=== PATIENT | female | born 1965 | race Caucasian/White ===

== ENCOUNTER 2021-08-08 08:28 | Outpatient (CLI) | payer BC, SELFPAY | END 2021-08-08 08:29 | disposition home or self-care (01) | LOC: ANHSURGERY 08:38 | PROVIDERS: PCP Internal Medicine; Visit Provider Obstetrics & Gynecology Gynecology | DX: Z01.818 Encounter for other preprocedural examination (principal) | CPT/HCPCS: 36415; 86850; 86900; 86901 ==

== ENCOUNTER 2021-08-15 16:53 | Inpatient (IN) | payer BC, SELFPAY ==
[2021-08-07 12:26] VITALS: BMI 26.5
--- NOTE | 2021-08-07 12:40 | PC.NURSE ---
Report to the Outpatient Waiting Room, entrance under the green pavilion located off [facility], at time 6:00 on date 08/14/21. OR Time: 7:30. - You and your visitor will be asked a series of questions to screen for COVID 19 for your protection. - A mask is required within the hospital. - Only one visitor is allowed at this time. Patient visitors will be guided where to wait when not with patient. Preoperative COVID Testing Requirements: No COVID Test needed if: (proof is required; if not received patient will have Rapid Test prior to entry) - Patient has received COVID Vaccine at least 14 days prior to procedure date or - Patient has positive COVID test result within last 90 days of surgery date. COVID Test needed if above criteria is not met If not COVID vaccinated a COVID test must be conducted within 72 hours of surgery and patient is asked to isolate self from time of testing until procedure. You will go to the [facility] for your COVID testing. The [facility] is located at the corner of [address] [facility]. You will only be called if COVID results are positive and your surgeon may reschedule your elective surgery date. Patients may have clear liquids (water, carbonated beverages, clear teas, apple juice) until 3 hours prior to surgery with a maximum of 20 ounces. - No food from midnight until time of surgery - Infants may have breast milk until 4 hours before surgery, formula 6 hours prior to surgery. - Children will be allowed to drink immediately following surgery. If applicable, please bring a bottle or sippy cup to assist with drinking. Juice, water, soda, and popsicles are readily available. For infants on formula, please bring formula the day of surgery. Pacifiers are allowed. Take the following medications with a SIP of water the morning of surgery: N/A Medications to discontinue per physician VITAMINS/SUPPLEMENTS Date to take last dose 3 DAYS PRE-OP Please no make-up, nail mongolian, hairspray, perfume, deodorant, or body powder the day of surgery. No jewelry (including any body piercings) or valuables the day of surgery, leave them at home. Please take a shower or bath the night before, or the morning of, surgery with an antibacterial soap. Wear comfortable, loose fitting clothing. Children are encouraged to wear pajamas. - Jewelry must be removed prior to entering the operating room. Rings and piercings that are not removed may be cut off. - The hospital will not accept responsibility for valuables. - Please leave all valuables, including medications, at home the day of surgery. If you are going home after surgery, a licensed special education bus driver must drive you home. - NO public transportation without another adult. - We recommend that an adult stay with you for 24 hours following discharge. - We also recommend that you do not drive, make important decision, drink alcoholic beverages, or take any drugs that were not prescribed by your health care provider for at least 24 hours after your discharge time. For Pediatric surgeries, we recommend two adults accompany the child home (only one inside the building at this time). Follow any additional instructions given to you from your surgeon. Telephone instructions given to NICHOLAS SCOTT and asked if any additional questions and then verbalized understanding. Patient advised to call surgeon office or pre surgery nurse liaison [phone] if any additional questions.
[2021-08-14] VITALS (13 sets, daily range): BP systolic 90–139; BP diastolic 60–86; PULSE 66–86; RESP 14–18; TEMP 36.2–36.8; O2SAT 94–100
[2021-08-14] MEDS: ACETAMINOPHEN 500 MG TABLET 1000 MG PO (06:37)
--- NOTE | 2021-08-14 06:45 | P.PNAN_ITS ---
Anes - Initial Pre Proc Eval Procedure: Operation Date: 08/14/21 07:30 Proposed Procedures p Anterior and Posterior Vaginal Repair - Yana Vargas MD s Total Vaginal Hysterectomy With Possible Right Salpingo-Oophorectomy - Yana Vargas MD Date/Time: 08/14/21 06:45 Surgeon: Yana Vargas MD Pre Op Diagnosis: cystocele and rectocele Patient Data Age: 55 Gender: F Height: 1.6 m Weight: 68.04 kg Allergies Allergy/AdvReac Type Severity Reaction Status Date / Time No Known Allergies Allergy Unknown Unverified 08/14/21 06:25 Home Medications Medication Instructions Recorded Confirmed Type cholecalciferol (vitamin D3) 25 mcg PO DAILY 08/07/21 08/14/21 History [Vitamin D3] multivitamin 1 tablet PO DAILY 08/07/21 08/14/21 History omega-3 fatty acids [[place] 3] 1,500 mg PO DAILY 08/07/21 08/14/21 History Patient hx anesthesia problems: none Family hx anesthesia problems: none Results Review: All pre-operative results and documents have been reviewed as part of the pre-operative evaluation. [facility] Past Medical History Medical History (Updated 08/14/21 @ 06:46 by Bradley Pinto MD) Overweight (BMI 25.0-29.9) Family History Family History (Updated 05/04/16 @ 23:19 by DOCTOR UNKNOWN) Father Hypertension Family history of diabetes mellitus in first degree relative Family history of heart disease in male family member before age 55 Social History Social History Smoking status: Never smoker Second hand tobacco smoke exposure: No Alcohol intake: never Substance use: never Substance use type: does not use Living arrangements: with family Spiritual care concerns: No Anes - Eval Final PreProcedure Day of Procedure 08/14/21 06:45 Patient weight: overweight Heart: regular rate and rhythm Lungs: clear to auscultation and normal air movement Airway: Mallampati scale class II Neurological: alert and oriented Last oral intake: >/= 8 hours ASA classification: II Emergent: no Anesthetic plan: proceed Anesthesia type and monitoring: general ETT Results Review: All pre-operative results and documents have been reviewed as part of the pre-operative evaluation. Informed Consent: The patient's anesthetic plan and its attendant risks and benefits were discussed with the patient/family/POA. Questions were solicited and answers provided to the satisfaction of the patient/family/POA.
[2021-08-14] MEDS: LACTATED RINGERS 1,000 ML 30 ML IV CONT ×2 (06:47→09:24)
[2021-08-14] MEDS: KETOROLAC 15 MG/ML VIAL (*BKC) IV PUSH (06:55)
[2021-08-14] MEDS: SCOPOLAMINE 1.5 MG PATCH TRANSDERM (07:00)
--- NOTE | 2021-08-14 07:07 | WPDHPUPDATE1 ---
History and Physical Update Update Date/Time: 08/14/21 07:07 History and Physical has been reviewed, including an updated exam of the patient. There are NO changes in the patient's condition. Risks, benefits, and alternatives have been discussed and questions answered. Patient agrees to proceed with procedure.
--- NOTE | 2021-08-14 07:08 | PM.HPGS ---
History of Present Illness History of Present Illness Consent: Risks, benefits, and alternatives have been discussed and questions answered. Patient agrees to proceed with procedure. Chief complaint: cystocele and rectocele Narrative: Digna Wilson is a 55 year old female with symptomatic pelvic organ prolapse. Patient notes she has to splint in order to empty her bowels. She feels constant pressure. No history genuine stress incontinence now or in the past. Plan is to proceed with total vaginal hysterectomy, possible right salpingo-oophorectomy, anterior and posterior vaginal repair. The risks of infection, bleeding, injury to internal organs (bowel, bladder, ureters), deep vein thrombosis, and general anesthesia were reviewed. Possibility of not being able to reach to the right tube and ovary were also reviewed. The possibility needing to do a total abdominal hysterectomy was also discussed. Patient voiced understanding and agrees to proceed. All questions are answered Review of Systems Review of Systems: All systems reviewed & are unremarkable except as noted in HPI and below (History of present illness) Genitourinary: Genitourinary: Reports vaginal dryness PMFSH Past Medical History Medical History (Updated 08/14/21 @ 07:14 by Yana Vargas MD) (normal spontaneous vaginal delivery) x 4 (all approx. 9#) Osteoporosis Overweight (BMI 25.0-29.9) Surgical History Surgical History (Updated 08/14/21 @ 07:12 by Yana Vargas MD) S/P left oophorectomy And salpingectomy Family History Family History (Updated 05/04/16 @ 23:19 by DOCTOR UNKNOWN) Father Hypertension Family history of diabetes mellitus in first degree relative Family history of heart disease in male family member before age 55 Social History Social History Smoking status: Never smoker Second hand tobacco smoke exposure: No Alcohol intake: never Substance use: never Substance use type: does not use Living arrangements: with family Spiritual care concerns: No Meds Home Medications and Allergies Home Medications Medication Instructions Recorded Confirmed Type cholecalciferol (vitamin D3) 25 mcg PO DAILY 08/07/21 08/14/21 History [Vitamin D3] multivitamin 1 tablet PO DAILY 08/07/21 08/14/21 History omega-3 fatty acids [[place] 3] 1,500 mg PO DAILY 08/07/21 08/14/21 History Allergies Allergy/AdvReac Type Severity Reaction Status Date / Time No Known Allergies Allergy Unknown Unverified 08/14/21 06:25 Exam Const: General: healthy appearing and alert Orientation/consciousness: patient oriented x3 Resp: Effort & Inspection: normal respiratory effort Auscultation: clear to auscultation bilaterally Cardio: Rate: regular rate Rhythm: regular rhythm GI: GI Palp: Yes Soft to palpation, No Tenderness to palpation present (GI) and No Palpable mass present : External Female Exam: normal external appearance Speculum Exam - Vagina: normal vaginal discharge and other (Rectocele past the introitus at rest; third-degree cystocele) Speculum Exam - Cervix: normal appearance of the cervix Bimanual exam- vagina & uterus: uterine size normal, consistency normal and other (Decent 2+ to spines with Valsalva) Bimanual Exam- Adnexa, other: normal adnexae and No adnexal tenderness Neuro: General: patient oriented x3 Assessment and Plan Assessment and plan (1) Prolapse of female pelvic organs: Code(s): N81.9 - Female genital prolapse, unspecified Status: Acute Assessment and Plan: Plan to proceed with total vaginal hysterectomy, possible right salpingo-oophorectomy, anterior-posterior vaginal repair
[2021-08-14] MEDS: ceFAZolin 2 GM/D5W 50 ML 2 GM/50 ML BAG IVPB (07:29)
--- NOTE | 2021-08-14 09:25 | W.PM.PROC2 ---
Procedure Note - Detailed Date of Procedure 08/14/21 Pre-op Diagnosis cystocele and rectocele and uterine prolapse Post-op Diagnosis same (Plus Enterocele) Procedure Performed Total vaginal hysterectomy, anterior-posterior vaginal repair, enterocele repair Surgeon Yana Vargas MD Anesthesia general Findings Rectocele at introitus at rest. Third degree cystocele and uterine prolapse to +2 from spines at rest under anesthesia. Right tube and ovary not palpable or visible Description of Procedure The patient was taken to the operating room and placed under anesthesia in the dorsal lithotomy position. She was prepped and draped in the usual sterile fashion. Short weighted speculum was placed posteriorly and Jose David retractors placed anteriorly. The cervix is grasped on the anterior lip with a tenaculum and the cervix was injected with 1% lidocaine with epinephrine in a circumferential manner. The vaginal mucosa was incised in a circumferential manner around the cervix with a scalpel. The vaginal mucosa is dissected off anteriorly using sharp and blunt dissection. The peritoneum was entered using sharp dissection. The Jose David retractor was replaced. Posterior vaginal mucosa is dissected off using sharp and blunt dissection. The peritoneum was entered using sharp dissection. The long curved weighted speculum was placed intraperitoneally. The cardinal and uterosacral ligaments are serially clamped, transected, and suture ligated with 0 Vicryl. These were tagged for future use. The uterine vessels are clamped, transected, and suture ligated with 0 Vicryl. The utero-ovarian ligament is clamped, transected, and suture ligated with 0 Vicryl. The specimen was amputated and handed to the pantograph operator. The right tube and ovary are not visible or palpable therefore were left in situ. The short weighted speculum is replaced and the Jose David retractor is removed from the peritoneal cavity. The peritoneum was grasped anteriorly with a Peon and posteriorly with a Peon in the midline. The peritoneum was closed using 0 Ethibond in a pursestring suture incorporating the previously tagged cardinal and uterosacral ligaments as well as the tagged peritoneum anteriorly and posteriorly. The vaginal cuff was closed using 0 Vicryl in a running locked fashion. Good hemostasis was noted at all pedicles. The short weighted speculum is removed and the perineum was grasped at 5 and 7:00 a.m. on the previous hymenal ring with Allis clamps. The intervening tissue was incised with a scalpel and the a triangular portion of skin is excised on the perineum. The midline vaginal mucosa is injected with 1% lidocaine with epinephrine. The midline vaginal mucosa was dissected off the rectocele using Metzenbaum scissors. As the vaginal mucosa is incised is grasped with Allis clamps until apex was reached. And enterocele is noted as well. This was dissected at the same time was the rectocele without reentering the peritoneal cavity. The enterocele and rectocele are reduced using horizontal mattress sutures of 0 Ethibond in an interrupted fashion. Once the reduction is complete, the excess vaginal mucosa is excised using Metzenbaum scissors. The vaginal mucosa was closed using 0 Vicryl in a running locked fashion. The short weighted speculum is replaced and the Jose David retractor removed. The cystocele base is grasped at 5 and 7:00 a.m. with Allis clamps and the intervening tissue incised with a scalpel. The midline vaginal mucosa is injected with 1% lidocaine with epinephrine. The vaginal mucosa was dissected off the cystocele in the midline. As the mucosa is dissected off and incised, it is grasped on the edges with Allis clamps. The urethra has good support therefore the dissection stopped at the level of the urethra. A single Allis clamp was placed at the apex. The lateral vaginal mucosa was dissected off the cystocele using sharp and blunt dissection. The cystocele was reduced usi
--- NOTE | 2021-08-14 09:35 | P.DS_ITS ---
DS: Admitting Diagnosis Discharge Date 08/15/21 Admitting Diagnosis Pelvic organ prolapse DS: Discharge Diagnosis Discharge Diagnosis (1) S/P vaginal hysterectomy: Code(s): Z90.710 - Acquired absence of both cervix and uterus Status: Acute (2) Postoperative hemorrhage: Status: Acute DS: Summary Hospital Course Hospital Course: Initially the patient had severe nausea and diarrhea. Hemoglobin was noted to be low on postop day 1 in the morning. No preop hemoglobin was drawn. Repeat hemoglobin was drawn 8hours later and was noted to be dropping to 6.6. Patient was returned to the operating room for ex ploratory laparotomy.Prior to discharge the patient is ambulating, voiding, and tolerating a regular diet. Pain was well controlled. Status at Discharge Functional status at discharge: independent ambulation Overall status at discharge: patient is progressing back to baseline Time Spent with Patient Time attestation: Total time spent providing and/or coordinating discharge services: Time spent: Less than 30 minutes DS: Data Data Completed and Pending Pending studies at discharge: Pending at discharge 08/14/21 08:26 Surgical [PTH] Routine Discharge Plan Discharge Patient Disposition: Home, Self-Care Discharge Instructions: Remove the Scopolamine patch that was placed behind your left ear in 72 hours or less. Wash your hands after touching. Stand Alone Forms: General Discharge Instructions Discharge Medications: No Action multivitamin Tablet 1 tablet PO DAILY RF: 0 [place] 3 Capsule 1,500 mg PO DAILY RF: 0 cholecalciferol (vitamin D3) [Vitamin D3] 25 mcg (1,000 unit) Tablet 25 mcg PO DAILY RF: 0
[2021-08-14] MEDS: ONDANSETRON INJ 4 MG/2 ML VIAL IV PUSH ×3 (09:58→21:34)
[2021-08-14] MEDS: fentaNYL CITRATE INJ (*CRX) 100 MCG/2 ML VIAL 25 MCG IV PUSH ×2 (10:09→10:11)
--- NOTE | 2021-08-14 10:47 | PC.NURSE ---
This patient, Digna Wilson, was received from PACU on 08/14/21 at 1047. Patient oriented to unit policies and routines
[2021-08-14] MEDS: DEXTROSE 5%/LACTATED RINGERS 1,000 ML 125 ML IV CONT ×2 (11:49→18:58)
[2021-08-14] MEDS: KETOROLAC 30 MG/ML VIAL (*BKC) IV PUSH ×2 (11:49→19:12)
[2021-08-14] MEDS: IBUPROFEN 600 MG TABLET PO (15:51)
[2021-08-14] MEDS: SIMETHICONE 80 MG TAB.CHEW PO ×3 (15:52→21:36)
[2021-08-14] MEDS: BENZOCAINE/MENTHOL (*BKC) 18 EA LOZENGE 1 LOZENGE PO (15:53)
[2021-08-14] MEDS: METOCLOPRAMIDE HCL INJ 10 MG/2 ML VIAL (18:44)
[2021-08-15] VITALS (14 sets, daily range): BP systolic 92–142; BP diastolic 58–97; PULSE 84–116; RESP 11–22; TEMP 36.3–37; O2SAT 92–100
[2021-08-15] MEDS: PROMETHAZINE HCL 25 MG/ML AMPUL IM (00:24)
[2021-08-15] MEDS: SIMETHICONE 80 MG TAB.CHEW PO ×4 (00:24→10:52)
[2021-08-15] MEDS: METOCLOPRAMIDE HCL INJ 10 MG/2 ML VIAL IV PUSH ×2 (01:22→07:17)
[2021-08-15] MEDS: DEXTROSE 5%/LACTATED RINGERS 1,000 ML 125 ML IV CONT ×2 (02:57→19:16)
[2021-08-15] MEDS: ONDANSETRON INJ 4 MG/2 ML VIAL IV PUSH ×2 (04:17→10:51)
[2021-08-15] MEDS: KETOROLAC 30 MG/ML VIAL (*BKC) IV PUSH ×2 (04:18→10:51)
[2021-08-15 05:52] LABS: Basophils Percent Auto 0.1 % (0.2-1.2); Hematocrit 25.5 % (37.0-47.0); Hemoglobin 8.4 g/dL (12.0-15.0); Immature Granulocyte Absolute 0.09 K/mm3 (0.00-0.031); Immature Granulocyte Percent A 0.5 % (0-0.5); Lymphocytes Absolute Auto 1.38 K/mm3 (0.9-3.2); Lymphocytes Percent Auto 8.4 % (18.3-44.2); Mean Corpuscular HGB Conc 32.9 g/dl (32-36); Mean Corpuscular Hemoglobin 30.9 pg (26-34); Mean Corpuscular Volume 93.8 fl (80-100); Mean Platelet Volume 10.5 fl (7.4-10.4); Monocytes Absolute Auto 1.2 K/mm3 (0.1-0.6); Monocytes Percent Auto 7.1 % (2.6-8.5); Neutrophils Absolute Auto 13.7 K/mm3 (1.3-6.7); Neutrophils Percent Auto 83.9 % (45.5-73.1); Platelet Count Result 290 k/mm3 (150-375); Red Blood Count 2.72 M/mm3 (4.2-5.4); Red Cell Distribution Width 13.2 % (11.5-14.5); White Blood Count 16.4 K/mm3 (4.5-10.0)
--- NOTE | 2021-08-15 07:53 | PM.GYNPNOP ---
APPEALS WRITER - A/P Postoperative Procedures: Procedures Operation Date: 08/14/21 07:30 Actual Procedure Side Surgeon p Anterior and Posterior Vaginal Repair Yana Vargas MD s Total Vaginal Hysterectomy Yana Vargas MD Postoperative day: 1 Postoperative status: other (nausea and diarrhea; continue meds) Postoperative plan: ambulate, advance diet, discharge (recheck H/H at 1pm and advance diet; possible dc home later today) and other (Hb low with no obvious cause; vital stable; no preop H/H done for some reason to compare.) Time Spent With Patient Time: Total time spent is greater than 50% in coordination of care (as documented) at patient's floor/unit and/or counseling patient: Time with patient: less than 15 minutes APPEALS WRITER- PN:Subj Post-Op Subjective Date/time seen: 08/15/21 07:53 Interval history: The patient took MOM prior to admit and has been having loose stools and nausea since recovery. Somewhat improved this am. Subjective: pain is well controlled and patient reports nausea Exam GI: Inspection: normal to inspection GI Palp: Yes abdominal tenderness (appropriate post op ) and Yes Soft to palpation APPEALS WRITER - PN: Obj Data Vital Signs Vital Signs: Vital Signs - 24 hr 08/14/21 09:24 08/14/21 09:35 08/14/21 09:45 Temperature 98.3 F Pulse Rate 86 66 68 Respiratory Rate 14 14 14 Blood Pressure 127/79 132/82 124/77 Pulse Oximetry 98 100 100 08/14/21 09:50 08/14/21 10:00 08/14/21 10:06 Temperature Pulse Rate 78 76 77 Respiratory Rate 18 18 18 Blood Pressure 127/86 108/72 106/74 Pulse Oximetry 95 94 94 08/14/21 10:20 08/14/21 10:35 08/14/21 11:00 Temperature 97.2 F L Pulse Rate 70 70 78 Respiratory Rate 14 14 16 Blood Pressure 106/66 104/64 106/66 Pulse Oximetry 97 95 100 08/14/21 16:00 08/14/21 18:40 08/14/21 19:00 Temperature 98.1 F 97.5 F L Pulse Rate 84 86 86 Respiratory Rate 18 18 18 Blood Pressure 110/76 90/60 L Pulse Oximetry 100 94 94 08/15/21 00:30 08/15/21 04:15 08/15/21 07:37 Temperature 97.7 F 98.6 F 97.6 F Pulse Rate 94 98 100 Respiratory Rate 16 16 18 Blood Pressure 92/58 L 108/66 96/62 L Pulse Oximetry 93 95 100 Intake/Output Intake/Output: Intake & Output 08/13/21 08/13/21 08/14/21 08/15/21 00:59 23:59 23:59 23:59 Intake Total 2280 2500 Output Total 1800 750 Balance 480 1750 Meds/Results Medications: Active Medications Generic Name Dose Route Start Last Admin Trade Name Freq PRN Reason Stop Dose Admin Hydrocodone Bitart/Acetaminophen 1 tab 08/14/21 10:41 Hydrocodone/Acetaminophen (*Crx) 5-325 Mg Tablet PO Q3H PRN Pain Rated 5 or Less Hydrocodone Bitart/Acetaminophen 1 tab 08/14/21 10:41 Hydrocodone/Acetaminophen (*Crx) 10-325 Mg Tablet PO Q3H PRN Pain Rated 6 or Greater Benzocaine 1 lozenge 08/14/21 15:00 08/14/21 15:53 Benzocaine/Menthol (*Bkc) 18 Ea Lozenge PO 1 lozenge PRN PRN Administration Sore Throat Dextrose/Lactated Ringer's 1,000 mls @ 125 mls/hr 08/14/21 10:41 08/15/21 02:57 Dextrose 5%/Lactated Ringers IV CONT 125 mls/hr .Q8H MALIKA Administration Fentanyl Citrate 600 mcg in 30 mls @ 0.5 mls/hr 08/14/21 11:00 Fentanyl 600 Mcg/Ns 30 Ml Motor Assembler IV CONT .Q24H PRN COPPER PLATER Management Protocol 10 MCG/HR Ibuprofen 600 mg 08/14/21 10:41 08/14/21 15:51 Ibuprofen 600 Mg Tablet PO 600 mg Q6H PRN Administration Cramping Ketorolac Tromethamine 30 mg 08/14/21 10:41 08/15/21 04:18 Ketorolac 30 Mg/Ml Vial (*Bkc) IV PUSH 08/19/21 10:40 30 mg Q6H PRN Administration Pain Rated 4-6 Metoclopramide HCl 10 mg 08/14/21 18:32 08/15/21 07:17 Metoclopramide Hcl Inj 10 Mg/2 Ml Vial IV PUSH 10 mg Q6HR PRN Administration Nausea And Vomiting Naloxone HCl 0.1 mg 08/14/21 10:41 Naloxone Hcl 0.4 Mg/Ml Vial IV PUSH Q2M PRN Respiratory rate less than 10 Ondansetron HCl 4 mg 08/14/21 10:41 08/15/21 04:17 Ond
[2021-08-15] MEDS: ZOLPIDEM TARTRATE (*CRX) 5 MG TABLET PO (08:01)
--- NOTE | 2021-08-15 09:07 | WPDANESPN ---
Anes - Prog Note Post-Op Date/Time: 08/15/21 09:07 Cardiovascular status: normal Respiratory status: normal Airway patency: baseline Mental status: baseline Post-Op hydration status: normal Vital Signs: Last Vital Signs Temp 36.4 C 08/15/21 07:37 Pulse 100 08/15/21 07:37 Resp 18 08/15/21 07:37 BP 96/62 L 08/15/21 07:37 Pulse Ox 100 08/15/21 07:37 Pain Score (VAS): 0 I/O: Intake & Output 08/14/21 08/15/21 08/15/21 23:59 07:59 15:59 Intake Total 1330 2500 Output Total 1100 750 Balance 230 1750 Laboratory Tests 08/15/21 04:26 08/15/21 04:26 WBC 16.4 H RBC 2.72 L Hgb 8.4 L Hct 25.5 L MCV 93.8 MCH 30.9 MCHC 32.9 RDW 13.2 Plt Count 290 MPV 10.5 H Immature Gran % (Auto) 0.5 Neut % (Auto) 83.9 H Lymph % (Auto) 8.4 L [place] % (Auto) 7.1 Eos % (Auto) 0.0 Baso % (Auto) 0.1 L Lymph # (Auto) 1.38 [place] # (Auto) 1.2 H Eos # (Auto) 0.0 Baso # (Auto) 0.0 Abs Immat Gran (auto) 0.09 H Absolute Neuts (auto) 13.7 H Absolute Nucleated RBC 0.0 Nucleated RBC % 0.0 Post-procedural complaints: none Patient Feedback: Patient satisfied with anesthetic care.
[2021-08-15] MEDS: HYDROcodone/acetaminophen (*CRX) 5-325 MG TABLET 1 TAB PO ×2 (10:54→19:17)
[2021-08-15 13:17] LABS: Hematocrit 20.5 % (37.0-47.0)
[2021-08-15 13:19] LABS: Hemoglobin 6.7 g/dL (12.0-15.0)
--- NOTE | 2021-08-15 14:12 | PC.NURSE ---
Pt. to OR per hospital bed. Report given. Consents signed. Dr. Vargas at bedside. No questions or concerns voiced.
--- NOTE | 2021-08-15 14:12 | WPDANESEPPF ---
Anes - Initial Pre Proc Eval Procedure: Operation Date: 08/14/21 07:30 Proposed Procedures p Anterior and Posterior Vaginal Repair - Yana Vargas MD s Total Vaginal Hysterectomy With Possible Right Salpingo-Oophorectomy - Yana Vargas MD Operation Date: 08/15/21 15:00 Proposed Procedures p Vaginal Exam Under Anesthesia, - Yana Vargas MD s Possible Exploratory Laparotomy - Yana Vargas MD Date/Time: 08/15/21 14:12 Surgeon: Yana Vargas MD Pre Op Diagnosis: cystocele and rectocele Patient Data Age: 55 Gender: F Height: 1.6 m Weight: 67 kg Last Vital Signs Temp 36.9 C 08/15/21 13:00 Pulse 108 H 08/15/21 13:00 Resp 18 08/15/21 13:00 BP 99/67 L 08/15/21 13:00 Pulse Ox 100 08/15/21 07:37 Allergies Allergy/AdvReac Type Severity Reaction Status Date / Time No Known Allergies Allergy Unknown Unverified 08/14/21 06:25 Home Medications Medication Instructions Recorded Confirmed Type cholecalciferol (vitamin D3) 25 mcg PO DAILY 08/07/21 08/14/21 History [Vitamin D3] multivitamin 1 tablet PO DAILY 08/07/21 08/14/21 History omega-3 fatty acids [Tornillo 3] 1,500 mg PO DAILY 08/07/21 08/14/21 History Laboratory Tests 08/15/21 08/15/21 04:26 13:10 WBC 16.4 K/mm3 H K/mm3 (4.5-10.0) RBC 2.72 M/mm3 L M/mm3 (4.2-5.4) Hgb 8.4 g/dL L g/dL 6.7 g/dL L* g/dL (12.0-15.0) (12.0-15.0) Hct 25.5 % L % 20.5 % L* % (37.0-47.0) (37.0-47.0) MCV 93.8 fl fl (80-100) MCH 30.9 pg pg (26-34) MCHC 32.9 g/dl g/dl (32-36) RDW 13.2 % % (11.5-14.5) Plt Count 290 k/mm3 k/mm3 (150-375) MPV 10.5 fl H fl (7.4-10.4) Immature Gran % (Auto) 0.5 % % (0-0.5) Neut % (Auto) 83.9 % H % (45.5-73.1) Lymph % (Auto) 8.4 % L % (18.3-44.2) [place] % (Auto) 7.1 % % (2.6-8.5) Eos % (Auto) 0.0 % % (0-4.4) Baso % (Auto) 0.1 % L % (0.2-1.2) Lymph # (Auto) 1.38 K/mm3 K/mm3 (0.9-3.2) [place] # (Auto) 1.2 K/mm3 H K/mm3 (0.1-0.6) Eos # (Auto) 0.0 K/mm3 K/mm3 (0-0.3) Baso # (Auto) 0.0 K/mm3 K/mm3 (0.0-0.1) Abs Immat Gran (auto) 0.09 K/mm3 H K/mm3 (0.00-0.031) Absolute Neuts (auto) 13.7 K/mm3 H K/mm3 (1.3-6.7) Absolute Nucleated RBC 0.0 K/mm3 K/mm3 (0.0-0.012) Nucleated RBC % 0.0 % % (0.0-0.2) Patient hx anesthesia problems: none Family hx anesthesia problems: none Results Review: All pre-operative results and documents have been reviewed as part of the pre-operative evaluation. [facility] Past Medical History Medical History (Updated 08/14/21 @ 07:14 by Yana Vargas MD) (normal spontaneous vaginal delivery) x 4 (all approx. 9#) Osteoporosis Overweight (BMI 25.0-29.9) Surgical History Surgical History (Updated 08/14/21 @ 09:36 by Yana Vargas MD) S/P left oophorectomy And salpingectomy Family History Family History (Updated 05/04/16 @ 23:19 by DOCTOR UNKNOWN) Father Hypertension Family history of diabetes mellitus in first degree relative Family history of heart disease in male family member before age 55 Social History Social History Smoking status: Never smoker Second hand tobacco smoke exposure: No Alcohol intake: never Substance use: never Substance use type: does not use Living arrangements: with family Spiritual care concerns: No Anes - Eval Final PreProcedure Day of Procedure 08/15/21 14:12 Patient weight: overweight Heart: regular rate and rhythm Lungs: clear to auscultation and normal air movement Airway: Mallampati scale class II Neurological: alert and oriented Last oral intake: >/= 8 hours ASA classification: II Emergent: no Anesthetic plan: proceed Anesthesia type and monitoring: general ETT Results Review: All pre-operative results and documents have been reviewed as part of the pre-operative evaluatio
[2021-08-15] MEDS: LACTATED RINGERS 1,000 ML 30 ML IV CONT ×2 (14:15→16:18)
--- NOTE | 2021-08-15 14:23 | PM.GYNPNOP ---
MANAGER CONSUMER - A/P Postoperative Procedures: Procedures Operation Date: 08/14/21 07:30 Actual Procedure Side Surgeon p Anterior and Posterior Vaginal Repair Yana Vargas MD s Total Vaginal Hysterectomy Yana Vargas MD Operation Date: 08/15/21 15:00 <No data on this case meets the specified criteria> Postoperative day: 1 Postoperative status: anemia (postop intraabdominal bleeding.VSS. Hb 6.6. Plan return to OR. Plan exploratory laparotomy with RSO. Reviewed with patient and daughter. ) Time Spent With Patient Time: Total time spent is greater than 50% in coordination of care (as documented) at patient's floor/unit and/or counseling patient: Time with patient: 15 - 25 minutes MANAGER CONSUMER- PN:Subj Post-Op Subjective Date/time seen: 08/15/21 14:23 Interval history: Patient feeling tired. Nausea better. Exam GI: Inspection: normal to inspection GI Palp: Yes abdominal tenderness, Yes Soft to palpation and Yes Firmness to palpation present (GI) (over prior scar) MANAGER CONSUMER - PN: Obj Data Vital Signs Vital Signs: Vital Signs - 24 hr 08/14/21 16:00 08/14/21 18:40 08/14/21 19:00 Temperature 98.1 F 97.5 F L Pulse Rate 84 86 86 Respiratory Rate 18 18 18 Blood Pressure 110/76 90/60 L Pulse Oximetry 100 94 94 08/15/21 00:30 08/15/21 04:15 08/15/21 07:37 Temperature 97.7 F 98.6 F 97.6 F Pulse Rate 94 98 100 Respiratory Rate 16 16 18 Blood Pressure 92/58 L 108/66 96/62 L Pulse Oximetry 93 95 100 08/15/21 13:00 Temperature 98.4 F Pulse Rate 108 H Respiratory Rate 18 Blood Pressure 99/67 L Pulse Oximetry Intake/Output Intake/Output: Intake & Output 08/13/21 08/13/21 08/14/21 08/15/21 00:59 23:59 23:59 23:59 Intake Total 2280 2550 Output Total 1800 750 Balance 480 1800 Meds/Results Medications: Active Medications Generic Name Dose Route Start Last Admin Trade Name Freq PRN Reason Stop Dose Admin Hydrocodone Bitart/Acetaminophen 1 tab 08/14/21 10:41 08/15/21 10:54 Hydrocodone/Acetaminophen (*Crx) 5-325 Mg Tablet PO 0.5 tab Q3H PRN Administration Pain Rated 5 or Less Hydrocodone Bitart/Acetaminophen 1 tab 08/14/21 10:41 Hydrocodone/Acetaminophen (*Crx) 10-325 Mg Tablet PO Q3H PRN Pain Rated 6 or Greater Benzocaine 1 lozenge 08/14/21 15:00 08/14/21 15:53 Benzocaine/Menthol (*Bkc) 18 Ea Lozenge PO 1 lozenge PRN PRN Administration Sore Throat Fentanyl Citrate 25 mcg 08/15/21 14:11 Fentanyl Citrate Inj (*Crx) 100 Mcg/2 Ml Vial IV PUSH Q2M PRN Pain Dextrose/Lactated Ringer's 1,000 mls @ 125 mls/hr 08/14/21 10:41 08/15/21 02:57 Dextrose 5%/Lactated Ringers IV CONT 125 mls/hr .Q8H MALIKA Administration Fentanyl Citrate 600 mcg in 30 mls @ 0.5 mls/hr 08/14/21 11:00 Fentanyl 600 Mcg/Ns 30 Ml Structures Technician IV CONT .Q24H PRN BUCKLE SEWER Management Protocol 10 MCG/HR Lactated Ringer's 1,000 mls @ 30 mls/hr 08/15/21 14:15 Lr - Lactated Ringers Iv IV CONT .Q24H MALIKA Lactated Ringer's 1,000 mls @ 30 mls/hr 08/15/21 14:15 Lr - Lactated Ringers Iv IV CONT .Q24H MALIKA Ibuprofen 600 mg 08/14/21 10:41 08/14/21 15:51 Ibuprofen 600 Mg Tablet PO 600 mg Q6H PRN Administration Cramping Ketorolac Tromethamine 30 mg 08/14/21 10:41 08/15/21 10:51 Ketorolac 30 Mg/Ml Vial (*Bkc) IV PUSH 08/19/21 10:40 30 mg Q6H PRN Administration Pain Rated 4-6 Metoclopramide HCl 10 mg 08/14/21 18:32 08/15/21 07:17 Metoclopramide Hcl Inj 10 Mg/2 Ml Vial IV PUSH 10 mg Q6HR PRN Administration Nausea And Vomiting Naloxone HCl 0.1 mg 08/14/21 10:41 Naloxone Hcl 0.4 Mg/Ml Vial IV PUSH Q2M PRN Respiratory rate less than 10 Ondansetron HCl 4 mg 08/14/21 10:41 08/15/21 10:51 Ondansetron Inj 4 Mg/2 Ml Vial IV PUSH 4 mg Q6H PRN Administration Nausea And Vomiting Ondansetron HCl 4 mg 08/15/21 14:11 Ondansetron Inj 4 Mg/2 Ml Vial IV PUSH ONCE NE
--- NOTE | 2021-08-15 16:18 | W.PM.PROC2 ---
Procedure Note - Detailed Date of Procedure 08/15/21 Pre-op Diagnosis Postoperative bleeding Post-op Diagnosis same Procedure Performed exploratory laparotomy right salpingo-oophorectomy left partial salpingectomy Surgeon Yana Vargas MD Anesthesia general Findings large amount of clotted blood in the pelvis, gutters, and cul-de-sac; portion of the left tube is noted to be present in attached was small loop of bowel and the distal end of this is noted to be bleeding; normal-appearing right tube and ovary Description of Procedure The patient was taken to the operating room and placed under anesthesia in the dorsal supine position. Per anesthesia she was transfused 1unit of packed red blood cells. She was prepped and draped in usual sterile fashion. A Pfannenstiel skin incision was made with a scalpel and carried down to the underlying layer of fascia. The fascial incision is made with a scalpel extended laterally using Carreon scissors. Bleeding vessels in the subcutaneous tissue are made hemostatic using Bovie cautery. Ochsner was used to tent the fascia which was then dissected off using blunt and sharp dissection. The rectus muscles are in the midline.The peritoneum is tented and entered with a Peon. At this point I manually removed copious amounts of blood clot from the pelvis, gutters, and cul-de-sac. The bowel was packed away using moist laparotomy sponges. The Horacio is placed. After the visual field is able to be inspected, a bleeding vessel is noted at what appears to be a remnant of the left tube. The left tube is attached to a small loop of bowel. The tube is grasped with a Nickie dissected off the bowel, crossclamped, and suture ligated with 0 Vicryl. Good hemostasis is noted at this pedicle. The right tube and ovary are then grasped with a Nickie. The minimally curved Z clamp was used to clamp the infundibulopelvic ligament just below the ovary. The ovary and tube are excised and the pedicle tied off using 0 Vicryl. As we were inspecting, the left uterine artery is pulled loose from its suture. This is grasped with a Z clamp and suture ligated with 0 Vicryl. The angles of vaginal cuff were grasped with Allis clamps there is some oozing noted at the vaginal cuff in the midline. This is suture ligated with [id number] 0 Vicryl sutures the bladder flap has some oozing and is controlled using Bovie cautery. All pedicles are inspected and noted to be hemostatic. The pelvis is irrigated, all tags are cut out, and sponges and instruments are removed. the fascia is then closed using 0 Vicryl in a running fashion. The subcutaneous tissues were irrigated made hemostatic using Bovie cautery. Skin incision was closed using 4-0 Vicryl in a subcuticular fashion. Dermaflex was placed over the incision. Sponge, needle, and instrument counts are correct per the OR staff. Ancef is given prior to incision. Patient is awakened from anesthesia and taken to recovery in stable condition. Estimated Blood Loss 50 ( Large amount of blood found in the abdomen at the time of surgery) Drains Yes ( Scherer catheter) Packing No Pathology yes ( right tube and ovary ; left partial tube) Complications Other complications ( intra-abdominal postoperative hemorrhage) Condition stable Disposition PACU
--- NOTE | 2021-08-15 17:50 | PC.NURSE ---
This patient, Digna Wilson, was received from [PACU per bed to room 286]. Patient/family oriented to unit policies and routines
[2021-08-15] MEDS: IBUPROFEN 600 MG TABLET PO (19:17)
[2021-08-16] VITALS (9 sets, daily range): BP systolic 102–122; BP diastolic 65–78; PULSE 62–125; RESP 16–69; TEMP 36.6–37.3; O2SAT 92–99
[2021-08-16] MEDS: HYDROcodone/acetaminophen (*CRX) 5-325 MG TABLET 1 TAB PO ×4 (00:12→17:32)
[2021-08-16] MEDS: ONDANSETRON INJ 4 MG/2 ML VIAL IV PUSH (00:14)
[2021-08-16] MEDS: DEXTROSE 5%/LACTATED RINGERS 1,000 ML 125 ML IV CONT (03:00)
[2021-08-16 05:58] LABS: Hematocrit 19.5 % (37.0-47.0); Hemoglobin 6.3 g/dL (12.0-15.0)
--- NOTE | 2021-08-16 07:23 | WPDANESPN ---
Anes - Prog Note Post-Op Date/Time: 08/16/21 07:23 Cardiovascular status: normal Respiratory status: normal Airway patency: baseline Mental status: baseline Post-Op hydration status: normal Vital Signs: Last Vital Signs Temp 36.8 C 08/16/21 04:45 Pulse 100 08/16/21 04:45 Resp 16 08/16/21 04:45 BP 121/78 08/16/21 04:45 Pulse Ox 92 08/16/21 04:45 Pain Score (VAS): 3 I/O: Intake & Output 08/15/21 08/15/21 08/16/21 15:59 23:59 07:59 Intake Total 1750 1250 1300 Output Total 750 1300 Balance 1750 500 0 Laboratory Tests 08/16/21 05:05 08/15/21 08/15/21 08/16/21 13:10 14:28 05:05 Hgb 6.7 L* 6.3 L* Hct 20.5 L* 19.5 L* Blood Type TNP Antibody Screen TNP Crossmatch See Detail Post-procedural complaints: none Patient Feedback: Patient satisfied with anesthetic care.
[2021-08-16] MEDS: SODIUM CHLORIDE 0.9% IV 250 ML 30 ML IV CONT (09:05)
[2021-08-16] MEDS: IBUPROFEN 600 MG TABLET PO ×2 (17:33→21:12)
[2021-08-16] MEDS: ZOLPIDEM TARTRATE (*CRX) 5 MG TABLET PO (21:11)
[2021-08-17 04:00] VITALS: BP 95/70; PULSE 96; RESP 18; TEMP 37.3
[2021-08-17] MEDS: IBUPROFEN 600 MG TABLET PO (04:35)
[2021-08-17 05:12] LABS: Hematocrit 21.2 % (37.0-47.0)
--- NOTE | 2021-08-17 07:52 | PM.GYNPNOP ---
RESIDENT ATHLETIC TRAINER - A/P Postoperative Procedures: Procedures Operation Date: 08/14/21 07:30 Actual Procedure Side Surgeon p Anterior and Posterior Vaginal Repair Yana Vargas MD s Total Vaginal Hysterectomy Yana Vargas MD Operation Date: 08/15/21 15:00 Actual Procedure Side Surgeon p Exploratory Laparotomy, Right Salpingo-Oophorectomy, Left Salpingectomy Not Applicable Yana Vargas MD Postoperative day: 2 Postoperative status: doing well and anemia (symptomatic still, will give one more unit PRBC then dc home) Postoperative plan: discharge Time Spent With Patient Time: Total time spent is greater than 50% in coordination of care (as documented) at patient's floor/unit and/or counseling patient: Time with patient: less than 15 minutes RESIDENT ATHLETIC TRAINER- PN:Subj Post-Op Subjective Date/time seen: 08/17/21 07:52 Interval history: Patient feeling tired. Nausea better. Subjective: patient reports feeling better, patient has no complaints (SOB with walking, minimal dizziness), pain is well controlled and patient is tolerating oral intake Exam Narrative: abd: soft, nt, inc c/d/i RESIDENT ATHLETIC TRAINER - PN: Obj Data Vital Signs Vital Signs: Vital Signs - 24 hr 08/16/21 08:30 08/16/21 09:10 08/16/21 09:15 Temperature 98.3 F 98.1 F Pulse Rate 62 125 H Respiratory Rate 18 18 Blood Pressure 115/70 114/76 Pulse Oximetry 98 93 93 08/16/21 09:28 08/16/21 10:28 08/16/21 11:28 Temperature 98.4 F 99.1 F 98.3 F Pulse Rate 113 H 105 H 85 Respiratory Rate 16 16 17 Blood Pressure 102/68 103/65 106/71 Pulse Oximetry 93 93 99 08/16/21 16:48 08/16/21 20:00 08/17/21 04:00 Temperature 98 F 98.2 F 99.2 F Pulse Rate 105 H 103 H 96 Respiratory Rate 16 69 H 18 Blood Pressure 122/78 117/69 95/70 L Pulse Oximetry 93 Intake/Output Intake/Output: Intake & Output 08/14/21 08/15/21 08/16/21 08/17/21 23:59 23:59 23:59 23:59 Intake Total 2280 5500 4450 700 Output Total 1800 1500 4500 600 Balance 480 4000 -50 100 Meds/Results Medications: Active Medications Generic Name Dose Route Start Last Admin Trade Name Freq PRN Reason Stop Dose Admin Hydrocodone Bitart/Acetaminophen 1 tab 08/14/21 10:41 08/16/21 17:32 Hydrocodone/Acetaminophen (*Crx) 5-325 Mg Tablet PO 0.5 tab Q3H PRN Administration Pain Rated 5 or Less Hydrocodone Bitart/Acetaminophen 1 tab 08/14/21 10:41 Hydrocodone/Acetaminophen (*Crx) 10-325 Mg Tablet PO Q3H PRN Pain Rated 6 or Greater Benzocaine 1 lozenge 08/14/21 15:00 08/14/21 15:53 Benzocaine/Menthol (*Bkc) 18 Ea Lozenge PO 1 lozenge PRN PRN Administration Sore Throat Dextrose/Lactated Ringer's 1,000 mls @ 125 mls/hr 08/14/21 10:41 08/16/21 13:08 Dextrose 5%/Lactated Ringers IV CONT Not Given .Q8H MALIKA Ibuprofen 600 mg 08/14/21 10:41 08/17/21 04:35 Ibuprofen 600 Mg Tablet PO 600 mg Q6H PRN Administration Cramping Ketorolac Tromethamine 30 mg 08/14/21 10:41 08/15/21 10:51 Ketorolac 30 Mg/Ml Vial (*Bkc) IV PUSH 08/19/21 10:40 30 mg Q6H PRN Administration Pain Rated 4-6 Metoclopramide HCl 10 mg 08/14/21 18:32 08/15/21 07:17 Metoclopramide Hcl Inj 10 Mg/2 Ml Vial IV PUSH 10 mg Q6HR PRN Administration Nausea And Vomiting Naloxone HCl 0.1 mg 08/14/21 10:41 Naloxone Hcl 0.4 Mg/Ml Vial IV PUSH Q2M PRN Respiratory rate less than 10 Ondansetron HCl 4 mg 08/14/21 10:41 08/16/21 00:14 Ondansetron Inj 4 Mg/2 Ml Vial IV PUSH 4 mg Q6H PRN Administration Nausea And Vomiting Ondansetron HCl 4 mg 08/15/21 14:11 Ondansetron Inj 4 Mg/2 Ml Vial IV PUSH ONCE PRN Nausea Promethazine HCl 25 mg 08/14/21 18:33 08/15/21 00:24 Promethazine Hcl 25 Mg/Ml Ampul IM 25 mg Q4H PRN Administration Nausea And Vomiting Simethicone 80 mg 08/14/21 10:41 08/15/21 10:52 Simethicone 80 Mg Tab.Chew PO 80 mg Q2H PRN Administration Gas Zolpidem Tartrate 5 m
[2021-08-17] MEDS: HYDROcodone/acetaminophen (*CRX) 5-325 MG TABLET 1 TAB PO (08:22)
[2021-08-17 08:30] VITALS: BP 131/77; PULSE 102; RESP 18; TEMP 36.6; O2SAT 96
[2021-08-17 09:41] VITALS: BP 105/62; PULSE 97; RESP 18; TEMP 36.7; O2SAT 100
[2021-08-17 09:57] VITALS: BP 108/67; PULSE 104; RESP 16; TEMP 36.8; O2SAT 90
[2021-08-17 10:57] VITALS: BP 105/63; PULSE 91; RESP 16; TEMP 36.7; O2SAT 99
[2021-08-17 11:35] VITALS: BP 102/67; PULSE 94; RESP 16; TEMP 36.9; O2SAT 95
== END 2021-08-17 15:40 | disposition home or self-care (01) | DRG 742 ==
LOC: ANHSURGERY 16:54 → ANHOB2 16:54
PROVIDERS: Admitting Provider Obstetrics & Gynecology Gynecology; PCP Internal Medicine; Visit Provider Obstetrics & Gynecology Gynecology
PROC: 0UT97ZZ Resection of Uterus, Via Natural or Artificial Opening (ICD-10-PCS; CPT 57260; principal; 2021-08-14 07:30)
PROC: 0UT94ZZ Resection of Uterus, Percutaneous Endoscopic Approach (ICD-10-PCS; 2021-08-14 07:30)
DX: N81.3 Complete uterovaginal prolapse (principal); N99.820 Postprocedural hemorrhage of a genitourinary system organ or structure following a genitourinary system procedure; D62 Acute posthemorrhagic anemia
CPT/HCPCS: 36415; 36430; 85014; 85018; 85025; 86900; 86901; 86920; 88305; 88307; 99199; A9270; J0330; J0690; J1100; J1170; J1885; J2250; J2405; J2550; J2704; J2710; J2765; J3010; J7050; J7120; J7121; P9016

== ENCOUNTER 2021-09-08 08:10 | Outpatient (CLI) | payer BC, SELFPAY ==
[2021-09-08 08:40] LABS: Basophils Absolute Auto 0.1 K/mm3 (0.0-0.1); Basophils Percent Auto 1.5 % (0.2-1.2); Eosinophils Absolute Auto 0.1 K/mm3 (0-0.3); Eosinophils Percent Auto 2.7 % (0-4.4); Hematocrit 37.6 % (37.0-47.0); Hemoglobin 12.4 g/dL (12.0-15.0); Immature Granulocyte Absolute 0.03 K/mm3 (0.00-0.031); Immature Granulocyte Percent A 0.6 % (0-0.5); Lymphocytes Absolute Auto 1.96 K/mm3 (0.9-3.2); Lymphocytes Percent Auto 37.7 % (18.3-44.2); Mean Corpuscular Hemoglobin 30.3 pg (26-34); Mean Corpuscular Volume 91.9 fl (80-100); Monocytes Absolute Auto 0.6 K/mm3 (0.1-0.6); Monocytes Percent Auto 11.7 % (2.6-8.5); Neutrophils Absolute Auto 2.4 K/mm3 (1.3-6.7); Neutrophils Percent Auto 45.8 % (45.5-73.1); Platelet Count Result 491 k/mm3 (150-375); Red Blood Count 4.09 M/mm3 (4.2-5.4); Red Cell Distribution Width 14.1 % (11.5-14.5); White Blood Count 5.2 K/mm3 (4.5-10.0)
== END 2021-09-08 08:11 | disposition home or self-care (01) ==
LOC: ANHLAB 08:13
PROVIDERS: PCP Internal Medicine; Visit Provider Obstetrics & Gynecology Gynecology
DX: N93.9 Abnormal uterine and vaginal bleeding, unspecified (principal)
CPT/HCPCS: 36415; 85025

== ENCOUNTER → 2021-09-08 12:05 | Outpatient (CLI) | payer BC, SELFPAY ==
--- NOTE | ~2021-09-08 | DEXA_ITS ---
Bone Density Report Name: NICHOLAS SCOTT Age: 55 Sex: Female Ethnicity: White Date of : 1965 Indication: postmenopausal osteoporosis; hysterectomy; Referring Provider: JOLANTA, THAI Study: Bone densitometry was performed. Exam Date: September 08, 2021 Accession number: [id number] Bone Density: Region BMD T-score Z-score Classification AP Spine (L1-L4) 0.802 -2.2 -1.0 Osteopenia Femoral Neck (Left) 0.698 -1.4 -0.2 Osteopenia Total Hip (Left) 0.822 -1.0 -0.2 Normal Femoral Neck (Right) 0.638 -1.9 -0.8 Osteopenia Total Hip (Right) 0.792 -1.2 -0.5 Osteopenia Total Hip Mean 0.807 -1.1 -0.4 Osteopenia World Health Organization criteria for BMD impression classify patients as: Normal (T-score at or above -1.0), Osteopenia (T-score between -1.0 and -2.5), or Osteoporosis (T-score at or below -2.5). 10-year Fracture Risk(1): Major Osteoporotic Fracture 7.9% Hip Fracture 0.8% Reported Risk Factors: [place] (), Neck BMD=0.638, BMI=26.4 (1) FRAX(R) Version 3.08. Fracture probability calculated for an untreated patient. Fracture probability may be lower if the patient has received treatment. Previous Exams: Region Exam Age BMD T-score BMD Change BMD Change Date g/cm2 vs Baseline vs Previous AP Spine(L1-L4) 09/08/2021 55 0.802 -2.2 -0.058* 0.051* 10/10/2018 52 0.751 -2.7 -0.109* -0.109* 06/01/2016 50 0.860 -1.7 Total Hip(Left) 09/08/2021 55 0.822 -1.0 -0.002 0.030* 10/10/2018 52 0.792 -1.2 -0.032* -0.032* 06/01/2016 50 0.824 -1.0 Total Hip(Right) 09/08/2021 55 0.792 -1.2 -0.018 -0.002 10/10/2018 52 0.793 -1.2 -0.016 -0.016 06/01/2016 50 0.810 -1.1 *Denotes significance at 95% confidence level, LSC for AP Spine = 0.022 g/cm2, LSC for Total Hip = 0.027 g/cm2 Clinical Information Provided by Patient: Has used the following medications: Prolia (i.e. denosumab), Calcium Has the following medical conditions: Hysterectomy Patient maximum height was 63 Menopause Age: 50 Does not regularly consume dairy products Drinks caffeinated beverages Onset of menses at age 11 Number of children 4 Impression: The patient has low bone mass, based on the Total Spine T-score. The patient has an estimated ten-year risk of hip fracture of 0.8% and an estimated ten-year risk of major fracture of 7.9%, ba
--- NOTE | ~2021-09-08 | MM_ITS ---
EXAMINATION: MM scrn opal implant BI w florencia HISTORY: Screening mammogram TECHNIQUE: Craniocaudal and mediolateral oblique 3-D tomosynthesis images with implant displacement a nd synthetic 2-D images were generated. Craniocaudal and mediolateral oblique views of the breasts wi thout implant displacement were obtained using full field digital mammography. CAD analysis was submi tted and interpreted. COMPARISON: 10/2018, , 02/22/2015 bilateral implant screening mammogram examinations BREAST PARENCHYMAL COMPOSITION: There are scattered areas of fibroglandular density. FINDINGS: Status post bilateral augmentation mammoplasty. There is no evidence of suspicious mass, ca lcification, or architectural distortion to suggest malignancy in either breast. There has been no robison spicious interval change. IMPRESSION: 1. No mammographic evidence of malignancy. 2. Recommend routine screening mammography in one year. BI-RADS Category 1: Negative Reviewed, dictated and finalized at location A. TH PROGRAM DIRECTOR
== END ==
PROVIDERS: PCP Internal Medicine; Visit Provider Nurse Practitioner
DX: Z12.31 Encounter for screening mammogram for malignant neoplasm of breast (principal); M81.0 Age-related osteoporosis without current pathological fracture; M85.89 Other specified disorders of bone density and structure, multiple sites
CPT/HCPCS: 77063; 77067; 77080

== ENCOUNTER 2021-12-04 01:16 | Day surgery (SDC) | payer BC, SELFPAY ==
[2021-11-24 12:43] VITALS: BMI 25.7
[2021-12-04 06:23] VITALS: BP 132/96; PULSE 92; RESP 17; TEMP 36.3; O2SAT 99
[2021-12-04 06:25] VITALS: BMI 26.3
[2021-12-04] MEDS: LACTATED RINGERS 1,000 ML 150 ML IV CONT (06:33)
--- NOTE | 2021-12-04 07:13 | P.PNAN_ITS ---
Anes - Initial Pre Proc Eval Procedure: Operation Date: 12/04/21 07:30 Proposed Procedures p Esophagogastroduodenoscopy & Screening Colonoscopy - Antonio Walsh MD Date/Time: 12/04/21 07:13 Surgeon: Antonio Walsh MD Pre Op Diagnosis: GERD, Family hx of colon ca, neoplasm screening Patient Data Age: 55 Gender: F Height: 1.6 m Weight: 67.4 kg Last Vital Signs Temp 97.3 F L 12/04/21 06:23 Pulse 92 12/04/21 06:23 Resp 17 12/04/21 06:23 BP 132/96 H 12/04/21 06:23 Pulse Ox 99 12/04/21 06:23 Allergies Allergy/AdvReac Type Severity Reaction Status Date / Time No Known Allergies Allergy Unknown Verified 12/04/21 06:22 Home Medications Medication Instructions Recorded Confirmed Type cholecalciferol (vitamin D3) 25 mcg PO DAILY 08/07/21 12/04/21 History [Vitamin D3] multivitamin 1 tablet PO DAILY 08/07/21 12/04/21 History omega-3 fatty acids 1,500 mg PO DAILY 08/07/21 12/04/21 History docusate sodium [Colace] 100 mg PO BID #60 cap 08/17/21 12/04/21 Rx Patient hx anesthesia problems: none Family hx anesthesia problems: none Results Review: All pre-operative results and documents have been reviewed as part of the pre-operative evaluation. [facility] Past Medical History Medical History (normal spontaneous vaginal delivery) x 4 (all approx. 9#) Osteoporosis Overweight (BMI 25.0-29.9) Surgical History Surgical History S/P left oophorectomy And salpingectomy Family History Family History Father Hypertension Family history of diabetes mellitus in first degree relative Family history of heart disease in male family member before age 55 Social History Social History Smoking status: Never smoker Second hand tobacco smoke exposure: No Alcohol intake: never Substance use: never Substance use type: does not use Living arrangements: with family Spiritual care concerns: No Anes - Eval Final PreProcedure Day of Procedure 12/04/21 07:13 Patient weight: overweight Heart: regular rate and rhythm Lungs: clear to auscultation Airway: Mallampati scale Neurological: alert and oriented Last oral intake: >/= 8 hours ASA classification: II Emergent: no Anesthetic plan: proceed Anesthesia type and monitoring: general GIVS and standard monitoring Results Review: All pre-operative results and documents have been reviewed as part of the pre-operative evaluation. Informed Consent: The patient's anesthetic plan and its attendant risks and benefits were discussed with the patient/family/POA. Questions were solicited and answers provided to the satisfaction of the patient/family/POA.
[2021-12-04] MEDS: BENZOCAINE (*SP) 60 ML SPRAY CAN (HURRICAINE) 1 SPRAY MUCOUS MEM (07:34)
[2021-12-04 07:41] VITALS: BP 116/75; PULSE 91; RESP 13; O2SAT 94
--- NOTE | 2021-12-04 07:46 | SUR.OPER ---
EGD ENDED 738, COLONOSCOPY STARTED 744
[2021-12-04 07:51] VITALS: BP 114/83; PULSE 85; RESP 19; O2SAT 94
[2021-12-04 08:00] VITALS: BP 112/80; PULSE 97; RESP 18; O2SAT 96
--- NOTE | 2021-12-04 08:01 | WPDGICN ---
Assessment and Plan Assessment and plan (1) Heartburn: Code(s): R12 - Heartburn Status: Acute Assessment and Plan: Patient has chronic ongoing heartburn. Plan is for EGD to assess more thoroughly. Garrard diet anti-reflux measures are encouraged and likely will benefit from acid suppression. Further recommendations will be given after endoscopy. (2) Family history of colon cancer in mother: Code(s): Z80.0 - Family history of malignant neoplasm of digestive organs Status: Acute Assessment and Plan: Patient's mother had colon cancer. For this reason surveillance colonoscopy at 5 year intervals is advised. GI Consult Note Consult date/time: 12/04/21 08:01 HPI: Digna Wilson is a 55 year old female Presents for screening colonoscopy. Patient's family history is significant that her mother had colon cancer. Patient states that her own weight appetite bowel movements are normal. She presents today for screening colonoscopy. Patient also notes rather frequent heartburn that occurs during the day. This been happening for many months. She denies any bleeding weight loss or dysphagia. Her family history is noncontributory. She takes [id number] antacids for relief of heartburn. No other medications at this time. Review of Systems Review of Systems: All systems reviewed & are unremarkable except as noted in HPI and below PMFSH Past Medical History Medical History (normal spontaneous vaginal delivery) x 4 (all approx. 9#) Osteoporosis Overweight (BMI 25.0-29.9) Surgical History Surgical History S/P left oophorectomy And salpingectomy Family History Family History Father Hypertension Family history of diabetes mellitus in first degree relative Family history of heart disease in male family member before age 55 Social History Social History Smoking status: Never smoker Second hand tobacco smoke exposure: No Alcohol intake: never Substance use: never Substance use type: does not use Living arrangements: with family Spiritual care concerns: No Meds Home Medications and Allergies Home Medications Medication Instructions Recorded Confirmed Type cholecalciferol (vitamin D3) 25 mcg PO DAILY 08/07/21 12/04/21 History [Vitamin D3] multivitamin 1 tablet PO DAILY 08/07/21 12/04/21 History omega-3 fatty acids 1,500 mg PO DAILY 08/07/21 12/04/21 History docusate sodium [Colace] 100 mg PO BID #60 cap 08/17/21 12/04/21 Rx Allergies Allergy/AdvReac Type Severity Reaction Status Date / Time No Known Allergies Allergy Unknown Verified 12/04/21 06:22 Vital Signs Vital Signs - 24 hr 12/04/21 06:23 12/04/21 07:41 12/04/21 07:51 Temperature 97.3 F L Pulse Rate 92 91 85 Respiratory Rate 17 13 19 Blood Pressure 132/96 H 116/75 114/83 Pulse Oximetry 99 94 94 Exam Narrative: Physical exam reveals patient to be alert. Vital signs stable. HEENT exam is unremarkable. Patient is anicteric. Lungs are clear to auscultation and percussion. Heart is without murmur or extra sounds. Abdomen bowel sounds present soft nontender with no organomegaly. Digital external rectal exam is normal.
[2021-12-04 08:10] VITALS: BP 125/74; PULSE 82; RESP 17; O2SAT 97
[2021-12-04 08:20] VITALS: BP 138/94; PULSE 80; RESP 17; O2SAT 99
== END 2021-12-04 08:45 | disposition home or self-care (01) ==
PROVIDERS: PCP Internal Medicine; Visit Provider Internal Medicine Gastroenterology
PROC: 0DJ08ZZ Inspection of Upper Intestinal Tract, Via Natural or Artificial Opening Endoscopic (ICD-10-PCS; CPT 43235; principal; 2021-12-04 07:30)
DX: Z12.11 Encounter for screening for malignant neoplasm of colon (principal); Z80.0 Family history of malignant neoplasm of digestive organs; K21.00 Gastro-esophageal reflux disease with esophagitis, without bleeding; K64.8 Other hemorrhoids; R23.4 Changes in skin texture; R12 Heartburn; M81.0 Age-related osteoporosis without current pathological fracture
CPT/HCPCS: 45378; 43239; 88305; J2704; J7120

== ENCOUNTER 2024-05-14 07:46 | Outpatient (CLI) | payer BC, SELFPAY ==
--- NOTE | ~2024-05-14 | US_ITS ---
EXAMINATION: US aorta DATE: 05/14/2024 08:12 INDICATION: Family history of abdominal aortic aneurysm and ischemic heart disease. TECHNIQUE: Grayscale, color Doppler, and pulsed Doppler images of the aorta and common iliac arteries were obtained. COMPARISON: None. FINDINGS: The aorta is normal in caliber and demonstrates atherosclerosis. The right common iliac artery is nor mal in caliber. The left common iliac artery is normal in caliber. IMPRESSION: 1. No abdominal aortic aneurysm. Reviewed, dictated and finalized at location A.
== END 2024-05-14 07:47 ==
PROVIDERS: PCP Internal Medicine; Visit Provider Internal Medicine
DX: Z13.6 Encounter for screening for cardiovascular disorders (principal); Z82.49 Family history of ischemic heart disease and other diseases of the circulatory system
CPT/HCPCS: 76775

== ENCOUNTER 2024-06-03 11:18 | Outpatient (CLI) | payer BC, SELFPAY ==
--- NOTE | ~2024-06-03 | MM_ITS ---
EXAMINATION: MM scrn opal implant BI w florencia HISTORY: Screening mammogram TECHNIQUE: Craniocaudal and mediolateral oblique 3-D tomosynthesis images with implant displacement a nd synthetic 2-D images were generated. Craniocaudal and mediolateral oblique views of the breasts wi thout implant displacement were obtained using full field digital mammography. CAD analysis was submi tted and interpreted. COMPARISON: Comparison to multiple prior studies sequentially, with oldest reviewed study dated 02/22. BREAST PARENCHYMAL COMPOSITION: Not dense: There are scattered areas of fibroglandular density. FINDINGS: There is no evidence of suspicious mass, calcification, or architectural distortion to sugg est malignancy in either breast. There has been no suspicious interval change. IMPRESSION: 1. No mammographic evidence of malignancy. 2. Recommend routine screening mammography in one year. BI-RADS Category 1: Negative Reviewed, dictated and finalized at location B.
== END 2024-06-03 11:19 ==
PROVIDERS: PCP Internal Medicine; Visit Provider Nurse Practitioner Women's Health
DX: Z12.31 Encounter for screening mammogram for malignant neoplasm of breast (principal); M81.0 Age-related osteoporosis without current pathological fracture; Z78.0 Asymptomatic menopausal state
CPT/HCPCS: 77063; 77067

== ENCOUNTER 2024-06-15 08:44 | Outpatient (CLI) | payer BC, SELFPAY ==
--- NOTE | 2024-06-15 08:47 | EST_ITS ---
Patient Info Name: Digna Cheek Age: 58 years : 1965 Gender: Female Ht: 63 in Wt: 145 lbs BSA: 1.72 m2 HR: 75 bpm BP: 157 / 99 mmHg Exam Date: 06/15/2024 8:53 AM Exam Location: [facility] Patient Status: Outpatient Admit Date: 06/15/2024 Staff Ordering Physician: Anthony Griffin DO Attending Provider: Anthony Griffin DO Exercise Technologist: Ann Guerrero RDCS Exercise Physician: Ankit Aguero DO Exam Type: CA stress test treadmill Study Info A treadmill exercise stress test was performed. Summary 1. 1. Negative Johnnie exercise stress test for ischemic ST changes by ECG criteria. 2. 2. Reduced functional capacity, achieving 7 METs of workload. 3. 3. Baseline hypertension. 4. 4. Appropriate HR response to exercise. 5. 5. Appropriate HR recovery at 1 minute post exercise. 6. 6. No imaging with stress testing. 7. 7. Patient informed of the above results. Protocol: Johnnie Stress ECG Details Stage: REST Duration (min): 4 min : 32 sec Speed (mph): 0.0 Grade (%): 0 HR (bpm): 74 SBP (mmHg): 157 DBP (mmHg): 99 METS: --- Stage: REST Duration (min): 8 min : 44 sec Speed (mph): 0.0 Grade (%): 0 HR (bpm): 94 SBP (mmHg): 157 DBP (mmHg): 99 METS: --- Stage: STAGE 1 Duration (min): 1 min : 0 sec Speed (mph): 1.7 Grade (%): 10 HR (bpm): 113 SBP (mmHg): 157 DBP (mmHg): 99 METS: --- Stage: STAGE 1 Duration (min): 2 min : 0 sec Speed (mph): 1.7 Grade (%): 10 HR (bpm): 120 SBP (mmHg): 157 DBP (mmHg): 99 METS: --- Stage: STAGE 1 Duration (min): 3 min : 0 sec Speed (mph): 1.7 Grade (%): 10 HR (bpm): 123 SBP (mmHg): 165 DBP (mmHg): 99 METS: --- Stage: STAGE 2 Duration (min): 1 min : 0 sec Speed (mph): 2.5 Grade (%): 12 HR (bpm): 138 SBP (mmHg): 165 DBP (mmHg): 99 METS: --- Stage: STAGE 2 Duration (min): 2 min : 0 sec Speed (mph): 2.5 Grade (%): 12 HR (bpm): 148 SBP (mmHg): 196 DBP (mmHg): 95 METS: --- Stage: STAGE 2 Duration (min): 3 min : 0 sec Speed (mph): 2.5 Grade (%): 12 HR (bpm): 147 SBP (mmHg): 196 DBP (mmHg): 95 METS: --- Stage: RECOVERY Duration (min): 0 min : 59 sec Speed (mph): 0.0 Grade (%): 0 HR (bpm): 125 SBP (mmHg): 186 DBP (mmHg): 95 METS: --- Stage: RECOVERY Duration (min): 1 min : 59 sec Speed (mph): 0.0 Grade (%): 0 HR (bpm): 108 SBP (mmHg): 186 DBP (mmHg): 95 METS: --- Stage: RECOVERY Duration (min): 2 min : 59 sec Speed (mph): 0.0 Grade (%): 0 HR (bpm): 106 SBP (mmHg): 158 DBP (mmHg): 102 METS: --- Stage: RECOVERY Duration (min): 3 min : 2 sec Speed (mph): 0.0 Grade (%): 0 HR (bpm): 106 SBP (mmHg): 158 DBP (mmHg): 102 METS: --- Rest HR: 94 bpm Peak HR: 148 bpm Rest Sys BP: 157 mmHg Peak Sys BP: 196 mmHg Max Pred HR: 161 bpm % Max Pred HR: 92 % Target HR: 137 bpm Max RPP: 29,008 bpm*mmHg Knutson Score: -1 Terminatio
== END 2024-06-15 08:45 | disposition home or self-care (01) ==
PROVIDERS: PCP Internal Medicine; Visit Provider Internal Medicine
DX: R55 Syncope and collapse (principal); I10 Essential (primary) hypertension
CPT/HCPCS: 93017

== ENCOUNTER 2024-08-16 16:46 | Emergency (ER) | payer BC, SELFPAY ==
--- NOTE | ~2024-08-16 | CT_ITS ---
EXAMINATION: CT abdomen pelvis w con DATE: 08/16/2024 21:30 INDICATION: constip now diarrhea; dark brown urine TECHNIQUE: Computed tomography (CT) of the abdomen and pelvis was performed with 100 mL Omnipaque-350 intravenous contrast. Automated exposure control and iterative reconstruction technique were employe d. The dose-length product was 313.64 mGy-cm. COMPARISON: None. FINDINGS: Lower thorax: Bilateral breast augmentation. Liver: Normal. Biliary/Gallbladder: Gallbladder is normal. No bile duct dilation. Pancreas: No mass or duct dilation. Spleen: Normal. Adrenals:No mass. Kidneys: No suspicious mass, obstructing stone, or hydronephrosis. Simple bilateral renal cysts. Subc entimeter right midpole hypodensity too small to characterize but likely represents a cyst. GI tract: Mild distal esophageal and gastric wall edema. No small or large bowel dilation. Descending and sigmoid colon wall thickening/edema and mucosal hyperemia. Dilated appendix measuring up to 11 m m with surrounding inflammatory change. No evidence of wall breakdown or periappendiceal abscess. Mesentery/Peritoneum: No ascites, mass, or free air. Retroperitoneum: No mass. Pelvis: Ill-defined 3.1 x 2.0 cm collection in the deep pelvis with suggestion of early rim enhanceme nt and loss of fat planes with the adjacent loops of sigmoid, vaginal cuff, and urinary bladder. The bladder is mostly decompressed. Loss of fat planes between urinary bladder and multiple loops of dean cent small bowel without clear fistulous connection. Absent uterus. Atrophic ovaries. Soft Tissues: Soft tissues and body wall unremarkable. Bones: No acute osseous finding. IMPRESSION: Mild esophagitis/gastritis. Acute appendicitis. Descending colonic and sigmoid colitis. 3.1 cm ill-defined collection in the left deep pelvis with loss of intervening fat planes planes with the adjacent loops of sigmoid, vaginal cuff and urinary bladder, may represent phlegmon or early abs cess. Fistula not excluded. Reviewed, dictated and finalized at location K. UP OPERATOR IMPRESSION: Mild esophagitis/gastritis. Acute appendicitis. Descending colonic and sigmoid colitis. 3.1 cm ill-defined collection in the left deep pelvis with loss of intervening fat planes planes with the adjacent loops of sigmoid, vaginal cuff and urinary bladder, may represent phlegmon or early abscess. Fistula not excluded.
[2024-08-16 16:47] VITALS: BP 166/96; PULSE 103; RESP 18; TEMP 36.6; O2SAT 96
--- NOTE | 2024-08-16 20:14 | ED.ABDPAIN ---
HPI - Abdominal Pain General Chief Complaint: Abdominal Pain Stated Complaint: ABD PAIN Time Seen by Provider: 08/16/24 20:11 Source: patient Mode of arrival: ambulatory Limitations: no limitations History of Present Illness HPI narrative: Patient has been having low abdominal pain of a few days duration. She was having a lot of cramping and bloating. She tried an enema yesterday which only resulted in clear water returning; same happened today. She took 2 Dulcolax earlier in the day and now she is having frequent stools that alternate between diarrhea as well as intermittently hard stools. Prior to this her last bowel movement had been 2 days ago and hard. For the past 2 and half months she has been on an elimination diet eating no processed food but eating a lot of meat such as chicken and fish with out many vegetables. Now that she is having bowel movements her cramping abdominal pain is much better. She has been nauseated and had an episode of nonbloody emesis here. None of her stools have been bloody. She notes that earlier she was diaphoretic. Denies any vaginal bleeding or discharge. Denies any flank pain but was having some low back pain. No dysuria, urgency, frequency or he bright red hematuria however she did note that her urine was dark brown. 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 Her last colonoscopy was approximately [address] Iyer. History of abdominal surgery with a hysterectomy and bladder sling with Dr. Vargas which had a small complication requiring revision/repair but otherwise no issues since. She continues to pass flatus. Related Data Home Medications Medication Instructions Recorded Confirmed cholecalciferol (vitamin D3) 25 25 mcg PO DAILY 08/07/21 04/10/24 mcg (1,000 unit) tablet (Vitamin D3) multivitamin 1 tablet PO DAILY 08/07/21 04/10/24 omega-3 fatty acids 1,500 mg PO DAILY 08/07/21 04/10/24 Allergies Allergy/AdvReac Type Severity Reaction Status Date / Time No Known Allergies Allergy Unknown Verified 04/10/24 07:39 [facility] Past Medical History Medical History (Updated 08/17/24 @ 00:00 by Lea Sheldon) (normal spontaneous vaginal delivery) x 4 (all approx. 9#) Osteoporosis Surgical History Surgical History H/O: hysterectomy Dr Vargas History of colonoscopy approx 2019; Dr Iyer S/P left oophorectomy And salpingectomy Family History Family History Father Hypertension Family history of diabetes mellitus in first degree relative Family history of heart disease in male family member before age 55 Social History Social History Social History: Smoking status: Never smoker Second hand tobacco smoke exposure: No Alcohol intake: never Substance use: never Substance use type: does not use Living arrangements: with family Spiritual care concerns: No Exam Narrative: GENERAL: Well-appearing, well-nourished, and in no acute distress. HEAD: Normocephalic, atraumatic. EYES: Non injected, non icteric ENT: Nares clear, no rhinorrhea or epistaxis. NECK: Supple. CHEST: Speaking in full sentences. No respiratory distress. HEART: Regular rate and rhythm. . ABDOMEN: Soft, nondistended. Mild suprapubic tenderness palpation as well as some mild tenderness to palpation in the left lower quadrant. : Normal external female genitalia. I did visualize the dark brown urine in specimen cup. EXTREMITIES: Normal range of motion. No lower extremity edema. SKIN: Warm, dry, no rash. NEURO: No focal deficits. Alert and oriented x3. PSYCH: Normal mood and affect. Course Vital Signs Vital signs: Vital Signs Temperature 97.9 F 08/16/24 16:47 Pulse Rate 103 H 08/16/24 16:47 Respiratory Rate 18 08/16/24 16:47 Blood Pressure 166/96 H 08/16/24 16:47 Pulse Oximetry 96 08/16/24 16:47 Oxygen Delivery Room Air 08/16/24 16:47 Temperature 97.9 F 08/16/24 16:47 Pulse Rate 108 H 08/16/24 22:43 Respiratory Rate 18 08/16/24 22:43 Blood Pressure 136/91 H 08/16/24 22:43 Pulse Oximetry 96 08/16/24 22:43 Oxygen Delivery Room Air 08/16/24 16:47 MDM - Abdominal Pain MDM Narrative Medical decision making narrative: Patient presents with abdominal pain of few days duration. She had been constipated in attempted an enema and Dulcolax and now has been having a lot of diarrhea interspersed with hard stools. She actually states her abdominal pain is much better now that she has had several bowel movements. In the emergency department she is afebrile with vital signs notable for hypertension and tachycardia. Abnormal urinalysis but without bacteria clearly identified. For this reason will defer giving antibiotics and await urine culture as this is only likely to worsen her diarrhea and cause nausea and vomiting as side effect. CT imaging with findings concerning for an appendicitis as well as an ill-defined fluid collection in the left pelvis. Also some colitis. Pelvic exam performed which does show a slight cystocele no without protrusion through the vulva. Rest of speculum and bimanual exam were unremarkable without any evidence of fistula. Patient does note that she has since had another urinary void and this was clear, not dark brown. Patient states her nausea and pain are completely resolved after ondansetron and acetaminophen. For this reason, low speculation for a true surgical appendicitis nor abscess or fistula. I did discuss the patient's workup, findings on CT scan, and physical exam, with on-call general surgeon Dr Lizarraga. Given patient is otherwise asymptomatic at this time, this may represent a radiographic over-read. Recommended discussing with patient if she would like to be admitted overnight for continued monitoring and serial abdominal examination or if she would prefer to go home with strict emergency department return precautions. He also concurred with holding on administering antibiotics for the multifaceted findings on the CT scan. Discussed extensively with patient and her . She feels very comfortable being discharged home and verifies understanding that she should return with any recurrence, new, worsening or on managed symptoms. She will also follow-up with her Business Development Agent will have access to records from today. Advised on rest and maintaining hydration. Noted that water is fine and she can also supplement with Pedialyte or Gatorade for electrolytes although no marked abnormalities today. Recommended avoiding juice or milk as this can make symptoms worse transiently. Differential Diagnosis Differential diagnosis: Likely abdominal pain, calculus of kidney, constipation, diverticulitis, gastroenteritis and other (medication side effect; diverticulitis w/ poss colovesicular fistula) Lab Data Attestation: I reviewed the patient's lab results. Lab results narrative: Transaminitis Mild leukocytosis 08/16/24 20:48 11/10/24 20:48 Labs: Lab Results 08/16/24 08/16/24 08/16/24 Range/Units 20:22 20:48 20:48 WBC 11.6 H (4.5-10.0) K/mm3 RBC 5.02 (4.2-5.4) M/mm3 Hgb 15.2 H (12.0-15.0) g/dL Hct 45.0 (37.0-47.0) % MCV 89.6 (80-100) fl MCH 30.3 (26-34) pg MCHC 33.8 (32-36) g/dl RDW 13.7 (11.5-14.5) % Plt Count 293 (150-375) k/mm3 MPV 9.9 (7.4-10.4) fl Immature Gran % (Auto) 0.3 (0-0.5) % Neut % (Auto) 90.4 H (45.5-73.1) % Lymph % (Auto) 4.7 L (18.3-44.2) % Kaufman % (Auto) 4.1 (2.6-8.5) % Eos % (Auto) 0.0 (0-4.4) % Baso % (Auto) 0.5 (0.2-1.2) % Lymph # (Auto) 0.55 L (0.9-3.2) K/mm3 Kaufman # (Auto) 0.5 (0.1-0.6) K/mm3 Eos # (Auto) 0.0 (0-0.3) K/mm3 Baso # (Auto) 0.1 (0.0-0.1) K/mm3 Abs Immat Gran (auto) 0.04 H (0.00-0.031) K/mm3 Absolute Neuts (auto) 10.5 H (1.3-6.7) K/mm3 Absolute Nucleated RBC 0.000 (0.0-0.012) K/mm3 Nucleated RBC % 0.0 (0.0-0.2) % Platelet Estimate Adequate (Adequate) Luann Cells 1+ Schistocytes None seen Sodium 134 L (137-145) mmol/L Potassium 3.9 (3.4-5.0) mmol/L Chloride 103 (98-107) mmol/L Carbon Dioxide 22 (22-30) mmol/L Anion Gap 9 (4-12) mmol/L BUN 31 H (7-17) mg/dL Creatinine 0.70 (0.7-1.0) mg/dL Estim Creat Clear Calc 62 ml/min Estimated GFR > 60 (59 - ) Glucose 140 H (65-110) mg/dL Calcium 9.2 (8.4-10.2) mg/dL Magnesium 2.4 H Cancelled (1.6-2.3) mg/dL Total Bilirubin 0.5 (0.2-1.3) mg/dL AST 71 H (14-36) U/L ALT 81 H (6-35) U/L Alkaline Phosphatase 340 H (38-126) U/L Total Protein 8.0 (6.3-8.2) g/dL Albumin 4.5 (3.5-5.1) g/dL Urine Color Brown H (Yellow) Urine Appearance Clear (Clear) Urine pH 5.0 (5.0-9.0) Ur Specific Franklin 1.038 H (1.001-1.035) Urine Protein 2+ H (Negative) mg/dL Urine Glucose (UA) Negative (Negative) mg/dL Urine Ketones 2+ H (Negative) mg/dL Ur Blood (Man) Negative (Negative) Urine Nitrate Positive H (Negative) Urine Bilirubin 2+ H (Negative) Urine Urobilinogen 1.0 (<2.0) mg/dL Add Ur Microanalysis Reviewed Leukocyte Esterase Rfl 1+ H (Negative) WILL/UL Urine RBC 6-10 H (0-2) /hpf Urine WBC 0-5 (0-3) /hpf Ur Squamous Epith Cells None seen (Few) /hpf Urine Bacteria None seen /hpf Urine Casts 3-5 Imaging Data Radiologist's impression: ITS Impressions Abdomen/Pelvis CT 08/16/24 21:31 IMPRESSION: Mild esophagitis/gastritis. Acute appendicitis. Descending colonic and sigmoid colitis. 3.1 cm ill-defined collection in the left deep pelvis with loss of intervening fat planes planes with the adjacent loops of sigmoid, vaginal cuff and urinary bladder, may represent phlegmon or early abscess. Fistula not excluded. Discharge Plan Discharge Clinical Impression: Pelvic fluid collection, Abnormal urinalysis, Transaminitis, Leukocytosis, Esophagitis with gastritis, Acute appendicitis, Colitis Patient Disposition: Home, Self-Care Condition: Stable Instructions: Antibiotic Form, Gastritis (DC), Pelvic Pain in Women (ED), Colitis (ED), Esophagitis (ED), Transaminitis (ED) Additional Instructions: As we discussed, reasonable to be discharged home and trialed conservative management with rest and maintaining fluid hydration as you continue to possibly have diarrheal stools in the setting of recent laxative use. If you have any pain you can use acetaminophen/Tylenol (are safe to take maximum 4000 mg per day) and for nausea or vomiting you can use the oral disintegrating tablets of ondansetron/Zofran. If you have any new/worsening/recurrence/unmanaged symptoms such as intractable pain, intractable nausea or vomiting, fainting/nearly passing out, fever greater than 100.4? F, concern for dehydration, etc. do not hesitate return immediately to the emergency department. Prescriptions: New ondansetron 4 mg tablet,disintegrating 4 mg PO Q8H PRN (Reason: nausea and vomiting) Qty: 7 0RF acetaminophen 500 mg capsule 1,000 mg PO Q6H PRN (Reason: pain) Qty: 20 0RF No Action famotidine [Pepcid] 40 mg tablet 40 mg PO DAILY Qty: 90 1RF multivitamin Tablet 1 tablet PO DAILY omega-3 fatty acids Capsule 1,500 mg PO DAILY cholecalciferol (vitamin D3) [Vitamin D3] 25 mcg (1,000 unit) Tablet 25 mcg PO DAILY Follow-up/Referrals: Yana Vargas MD [Physician] - (BUDGET AND POLICY ANALYST) Anthony Griffin DO [Primary Care Provider] - Stand Alone Forms: Work/School Release IP Time of Disposition: 23:15
[2024-08-16] MEDS: ONDANSETRON INJ 4 MG/2 ML VIAL IV PUSH (20:41)
[2024-08-16] MEDS: ACETAMINOPHEN 500 MG TABLET 1000 MG PO (20:41)
[2024-08-16 20:45] VITALS: BP 153/96; PULSE 92; RESP 18; O2SAT 95
[2024-08-16 20:53] LABS: Basophils Absolute Auto 0.1 K/mm3 (0.0-0.1); Basophils Percent Auto 0.5 % (0.2-1.2); Hemoglobin 15.2 g/dL (12.0-15.0); Immature Granulocyte Absolute 0.04 K/mm3 (0.00-0.031); Immature Granulocyte Percent A 0.3 % (0-0.5); Lymphocytes Absolute Auto 0.55 K/mm3 (0.9-3.2); Lymphocytes Percent Auto 4.7 % (18.3-44.2); Mean Corpuscular HGB Conc 33.8 g/dl (32-36); Mean Corpuscular Hemoglobin 30.3 pg (26-34); Mean Corpuscular Volume 89.6 fl (80-100); Mean Platelet Volume 9.9 fl (7.4-10.4); Monocytes Absolute Auto 0.5 K/mm3 (0.1-0.6); Monocytes Percent Auto 4.1 % (2.6-8.5); Neutrophils Absolute Auto 10.5 K/mm3 (1.3-6.7); Neutrophils Percent Auto 90.4 % (45.5-73.1); Platelet Count Result 293 k/mm3 (150-375); Red Blood Count 5.02 M/mm3 (4.2-5.4); Red Cell Distribution Width 13.7 % (11.5-14.5); White Blood Count 11.6 K/mm3 (4.5-10.0)
[2024-08-16 21:01] LABS: Add Urine Microscopic? YES; Appearance Urine Clear (Clear); Bacteria Urine None Seen /hpf; Bilirubin Urine 2+ (Negative); Blood Urine Negative (Negative); Glucose Urine UA Negative (Negative); Ketones Urine 2+ mg/dL (Negative); Leukocyte Esterase Ur 1+ LEU/UL (Negative); Need Manual Microscopic Reviewed; Nitrate Urine Positive (Negative); Protein Urine 2+ mg/dL (Negative); Specific Grav Ur 1.038 (1.001-1.035); Squamous Epithelial Cell Urine None Seen /hpf (Few); WBC Urine 0-5 /hpf (0-3)
[2024-08-16 21:02] LABS: Color Urine Brown (Yellow)
[2024-08-16 21:04] LABS: Alanine Aminotransferase 81 U/L (6-35); Albumin Level 4.5 g/dL (3.5-5.1); Alkaline Phosphatase 340 U/L (38-126); Anion Gap 9 mmol/L (4-12); Aspartate Amino Transferase 71 U/L (14-36); Bilirubin,Total 0.5 mg/dL (0.2-1.3); Blood Urea Nitrogen 31 mg/dL (7-17); Calcium 9.2 mg/dL (8.4-10.2); Carbon Dioxide 22 mmol/L (22-30); Chloride 103 mmol/L (98-107); Estimated CRCL calculation 62 ml/min; Estimated Glomerular Filt Rate > 60; Glucose 140 mg/dL (65-110); Magnesium 2.4 mg/dL (1.6-2.3); Potassium 3.9 mmol/L (3.4-5.0); Sodium 134 mmol/L (137-145)
[2024-08-16 21:49] LABS: Burr Cells 1+; Platelet Estimate Adequate (Adequate); Schistocytes None Seen
[2024-08-16 22:43] VITALS: BP 136/91; PULSE 108; RESP 18; O2SAT 96
== END 2024-08-16 23:26 | disposition home or self-care (01) ==
PROVIDERS: Emergency Provider Student in an Organized Health Care Education/Training Program; PCP Internal Medicine
DX: K35.80 Unspecified acute appendicitis (principal); K52.9 Noninfective gastroenteritis and colitis, unspecified; K29.70 Gastritis, unspecified, without bleeding; K20.90 Esophagitis, unspecified without bleeding; R82.998 Other abnormal findings in urine; D72.829 Elevated white blood cell count, unspecified; R74.01 Elevation of levels of liver transaminase levels; R93.89 Abnormal findings on diagnostic imaging of other specified body structures; M81.0 Age-related osteoporosis without current pathological fracture; Z90.721 Acquired absence of ovaries, unilateral; Z90.79 Acquired absence of other genital organ(s)
CPT/HCPCS: 36415; 74177; 80053; 81001; 83735; 85025; 87086; 96374; 99284; A9270; J2405; Q9967